=== PATIENT | male | born 1955 | race Caucasian/White ===

== ENCOUNTER → 2019-04-19 | Outpatient (CLI) | payer BC, OTHER ==
--- NOTE | 2019-04-19 12:24 | MRI ---
Study: MRI of the Left Knee. Indication: Medial meniscus tear Technique: Multiplanar, multi sequence MRI of the left knee was obtained without intravenous contrast. Comparison: None Findings: Mild to moderately motion degraded exam. ACL, PCL, MCL, and lateral collateral ligament complex intact. Degenerative signal posterior horn and body medial meniscus without tear. Grade 2 and 3 chondral thinning throughout the medial compartment with subtle grade 3-4 chondral fissuring of the central and lateral margin medial femoral condyle. There is adjacent subchondral fracture of the central aspect of the medial femoral condyle with surrounding marrow edema. Scattered degenerative signal change lateral meniscus without tear. Grade 2 and mild grade 3 chondral thinning throughout the lateral compartment. Tendinosis quadriceps tendon insertion and patellar tendon origin with mild interstitial fissuring. No high-grade tear. Patella normally located. Patchy areas of grade 2 chondrosis throughout the patella. Moderate size knee effusion. Tiny Funes's cyst. Multilobulated intraosseous ganglion suspected within the central aspect of the tibial plateau measuring up to 20 mm. Impression: Mild to moderately motion degraded exam. Degenerative signal change medial meniscus and lateral meniscus without tear. Small subchondral fractures of the central aspect medial femoral condyle with extensive surrounding marrow edema. 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 Grade 2 chondrosis throughout the patella. Moderate size knee effusion. Tendinosis and mild interstitial fissuring quadriceps tendon insertion and patellar tendon origin. Electronically signed by: Eddy Gilliland MD 04/19/2019 12:22 PM CDT
== END ==
LOC: EDBD 09:10 → MRI 09:10
PROVIDERS: ATTEND Family Medicine
DX: S83.242D Other tear of medial meniscus, current injury, left knee, subsequent encounter (principal); S72.435A Nondisplaced fracture of medial condyle of left femur, initial encounter for closed fracture; M94.262 Chondromalacia, left knee; M76.892 Other specified enthesopathies of left lower limb, excluding foot

== ENCOUNTER → 2020-05-02 | Outpatient (CLI) | payer BC | LOC: GMAE 10:18 | PROVIDERS: ATTEND Family Medicine | DX: E03.9 Hypothyroidism, unspecified (principal); Z12.5 Encounter for screening for malignant neoplasm of prostate; E78.2 Mixed hyperlipidemia; I10 Essential (primary) hypertension ==

== ENCOUNTER → 2020-08-31 | Outpatient (CLI) | payer MEDICARE, OTHER ==
--- NOTE | 2020-09-01 16:16 | US ---
EXAM DESCRIPTION: Abdomen,Complete: Ultrasound. CLINICAL HISTORY: 65 years Male RIGHT UPPER QUAD PN COMPARISON: None Available. TECHNIQUE: Transabdominal scanning: grayscale and Doppler modes. FINDINGS: Gallbladder: normal size, shape, echogenicity; no intraluminal stones or sludge. No fluid around the gallbladder. No wall thickening. 2.2 mm Non-tender with transducer pressure. Common bile duct: caliber 4.8 mm within normal limits. Liver: Heterogeneously increased echogenicity; contour liver capsule smooth where seen. No fluid around the liver. Intrahepatic biliary ducts normal caliber. Doppler hepatopedal flow and normal caliber portal vein 8 mm.. Long axis right lobe 15.6 cm. Pancreas: normal size and echogenicity. Duct not seen. Complete abdominal aorta: Normal caliber from the proximal segment to the distal bifurcation.. IVC: visualized and normal caliber. Right kidney: long axis measures 12.4 cm; volume . 291 mL. Minimal lobulation of the capsule. 3.5 mm and 5.4 mm echogenic structures in the cortex. Cortical echogenicity is otherwise normal. Normal cortical thickness. No hydronephrosis. Left kidney: long axis measures 11.8 cm; volume 290.4 mL. Minimal lobulation of the capsule. Cortical echogenicity is normal. Normal cortical thickness. No echogenic stones, no hydronephrosis. Spleen: Normal. No focal lesions.. 9.5 cm long axis. Other: None. IMPRESSION: 1. Mild steatosis of the liver with size upper normal limits. Physiologic vascularity index. Capsule and no ascites. Pancreas is negative. 2. 3.5 mm and 5.4 mm echogenic stones in the cortex of the right kidney but no hydronephrosis. Bilateral kidneys otherwise unremarkable. Spleen is negative. 3. Gallbladder common bile duct are negative findings. Electronically signed by: Zachariah Bernabe MD 09/01/2020 4:14 PM [employer]
== END ==
LOC: US 11:34
PROVIDERS: ATTEND Family Medicine
DX: K76.0 Fatty (change of) liver, not elsewhere classified (principal); N20.0 Calculus of kidney